=== PATIENT | female | born 1965 | race Caucasian/White ===

== ENCOUNTER → 2017-03-18 | Outpatient (CLI) | payer OTHER | END | disposition home or self-care (01) | LOC: GMAJ 18:13 | PROVIDERS: ATTEND Family Medicine | DX: M79.609 Pain in unspecified limb (principal) ==

== ENCOUNTER → 2018-08-18 | Outpatient (CLI) | payer OTHER ==
--- NOTE | 2018-08-19 12:25 | MRI ---
Study: MRI of the Left Knee. Indication: KNEE PAIN Technique: Multiplanar, multi sequence MRI of the left knee was obtained without intravenous contrast. Comparison: None. Findings: Full-thickness recurrent proximal ACL graft tear noted with small pivot shift osseous contusions of the lateral and medial knee compartments. No displaced acute fracture. Moderate size knee effusion. PCL, MCL, and lateral collateral ligament complex intact. Subtle increased PD signal along the undersurface of the posterior horn and body medial meniscus which may reflect a primary undersurface tear or postsurgical change. No fluid-filled tear defect. Tiny horizontally oriented focus of increased PD signal at the body which may reflect a tiny horizontal cleavage tear or postsurgical signal changes well. Areas of grade 2 and mild grade 3 chondral thinning and surface irregularity throughout the medial lateral knee compartments. Patellofemoral extensor mechanism intact. Mild lateral patellar tilt and subluxation. TT-TG distance measures 2 mm. No high-grade chondral defect patellofemoral compartment Impression: Acute full-thickness proximal ACL graft tear with small pivot shift osseous contusions. Subtle findings of the medial meniscus and lateral meniscus which could reflect primary meniscal tears versus postsurgical signal change. Correlation with surgical history recommended. Attention to these sites at arthroscopy recommended. Grade 2 and mild grade 3 chondral thinning medial and lateral knee compartments. Mild lateral patellar tilt and subluxation. Moderate size knee effusion. Electronically signed by: George Mcleod MD 08/19/2018 12:23 PM CDT
--- NOTE | 2018-08-19 13:51 | MAM ---
EXAM DESCRIPTION: 3D Screening BILATERAL : Digital Mammography. CLINICAL HISTORY: 53 years Female SCREEN . No complaints or personal history of breast cancer. No family history of breast cancer but remote family history of ovarian cancer. Childbirth. Postmenopausal over 20 years. Currently on HRT. Lifetime risk of developing breast cancer (Tyrer-Cuzick model)(%): 6.7. COMPARISON: 2-D digital screening bilateral mammography 01/01/2016.. TECHNIQUE: Bilateral CC and MLO projection full-field images, digital tomosynthesis mammographic technique. Bilateral digital 2-D full-field MLO images. CAD not available for tomosynthesis or 2-D images. FINDINGS: The breast parenchymal density pattern is: Heterogeneously dense breast tissue, which may obscure small masses.. Bilateral axillary lymph nodes. Bilateral small solitary microcalcifications. No new focal, stellate mass or density, focal asymmetry , and no suspicious microcalcifications bilaterally. Stable mammograms compared to prior study. Taking into account, differences in mammographic technique. IMPRESSION: Benign exam. BIRAD CATEGORY: 2 BENIGN FINDINGS. RECOMMENDATIONS: FOLLOW UP: Routine digital bilateral mammographic screening, one year interval from August 2018. Written communication explaining the IMPRESSION and follow-up, will be mailed to the patient and referring health care provider. The FINDINGS and the FOLLOW-UP plan were reviewed in person with the patient after the examination. According to the [employer], yearly mammograms are recommended starting at age 40 and continuing as long as a woman is in good health. Any breast change noted on a breast self-exam should be reported promptly to the patient's healthcare provider. Breast MRI is recommended for women with an approximately 20-25% or greater lifetime risk of breast cancer, including women with a strong family history of breast or ovarian cancer and women who have been treated for Hodgkin's disease. A negative mammographic report should not delay tissue diagnosis in patients with significant clinical history or physical findings. Extremely dense breast tissue limits the sensitivity of digital mammography. Electronically signed by: Jurgen Fernandez MD 08/19/2018 1:49 PM CDT
== END ==
LOC: MRI 10:53
PROVIDERS: ATTEND Nurse Practitioner Family
DX: Z12.31 Encounter for screening mammogram for malignant neoplasm of breast (principal); S83.512A Sprain of anterior cruciate ligament of left knee, initial encounter; S83.012A Lateral subluxation of left patella, initial encounter; M94.8X6 Other specified disorders of cartilage, lower leg